=== PATIENT | male | born 1950 | race Caucasian/White ===

== ENCOUNTER 2016-12-20 04:47 | Emergency (ER) | payer OTHER ==
--- NOTE | 2016-12-20 05:13 | EDM.PDOC ---
ED HISTORY OF PRESENT ILLNESS - General Chief Complaint: Cardiovascular Problem Stated Complaint: CHEST PAIN Time Seen by Provider: 12/20/16 05:00 Source: Reports: Patient History Limitations: Reports: Other (Poor historian) - History of Present Illness INITIAL COMMENTS - FREE TEXT/NARRATIVE: 66 yo male with mild exertional chest pain for the past week was awakened tonight about 0230h by substernal CP not associated with SOB, nausea, or diaphoresis. Pain worse than earlier in the week. Is vague about his cardiac hx , poor historian. Is a [facility] patient. Took a baby aspirin before coming in tonight. Has had some diarrhea recently. An occasional dry cough without SOB. Symptom Onset Date: 12/13/16 Timing/Duration: Reports: Week(s):, Getting worse, Gradual onset Severity: moderate Location, General: Reports: chest Quality: Reports: Other ("not sharp") Improves with: Reports: None Worsens with: Reports: None Context, General: Reports: Other (Onset at rest. 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: Other (see below) (None) - Related Data Allergies/ADRs: Allergies Allergy/AdvReac Type Severity Reaction Status Date / Time No Known Allergies Allergy Verified 12/20/16 05:11 Home Meds: Home Meds Aspirin [Halfprin] 81 mg PO DAILY 12/20/16 [History] Carvedilol 25 mg PO BIDMEALS 12/20/16 [History] Lisinopril 40 mg PO DAILY 12/20/16 [History] Potassium Chloride 10 meq PO TID #14 cap.er 12/20/16 [Rx] amLODIPine Besylate [Amlodipine Besylate] 5 mg PO DAILY 12/20/16 [History] atorvaSTATin Calcium [Atorvastatin Calcium] 80 mg PO BEDTIME 12/20/16 [History] ED ROS GENERAL - Review of Systems Review Of Systems: See Below Constitutional: Reports: no symptoms HEENT: Reports: No symptoms Respiratory: Reports: No Symptoms Cardiovascular: Reports: Chest pain Endocrine: Reports: no symptoms GI/Abdominal: Reports: No symptoms : Reports: no symptoms Musculoskeletal: Reports: no symptoms Skin: Reports: no symptoms ED EXAM, GENERAL - Physical Exam Exam: See Below Exam Limited By: No limitations General Appearance: alert, WD/WN, no apparent distress, obese Eye Exam: bilateral eye: normal inspection Ears: normal external exam, normal canal, hearing grossly normal, normal TMs Ear Exam: bilateral ear: auricle normal, canal normal Nose: normal inspection, normal mucosa, no blood Throat/Mouth: Normal inspection, Normal lips, Normal teeth, Normal oropharynx, Normal voice, No airway compromise Head: atraumatic, normocephalic Neck: normal inspection Respiratory/Chest: no respiratory distress, lungs clear, normal breath sounds, no accessory muscle use Cardiovascular: regular rate, rhythm, no edema, other (No chest wall pain) GI/Abdominal: normal bowel sounds, soft, non tender, no distention Back Exam: normal inspection Extremities: normal inspection, normal range of motion, non-tender, no pedal edema Neurological: alert, oriented, CN II-XII intact, normal cognition Psychiatric: normal affect, normal mood Skin Exam: Warm, Dry, Intact, Normal color, No rash Lymphatic: no adenopathy EKG INTERPRETATION EKG Date: 12/20/16 Time: 05:00 Rhythm: NSR Rate (beats/min): 64 [place]: normal P-wave: present QRS: normal ST-T: normal QT: normal Comparison: NA - no prior EKG EKG Interpretation Comments: Poor R wave progression anterior leads. No acute changes. Course - Vital Signs Text/Narrative:: ASA 243 mg po CXR-neg KCL 40 meq po - Orders/Labs/Meds Orders: Active Orders 24 hr Category Date Time Status EKG Documentation Completion [RC] ASDIRECTED Care 12/20/16 04:51 Active Chest 2V [CR] Stat Exams 12/20/16 05:50 Taken UA W/MICROSCOPIC [URIN] Stat Lab 12/20/16 06:03 Uncollected Saline Lock Insert [OM.PC] Routine Oth 12/20/16 05:51 Ordered EKG 12 Lead [EK] Routine Ther 12/20/16 04:51 Ordered Labs: Laboratory Tests 12/20/16 12/20/16 12/20/16 Range/Units 05:23 05:23 05:23 WBC 14.5 H (4.5-12.0) X10-3/uL RBC 4.46 (4.30-5.75) x10(6)uL Hgb 11.8 (11.5-15.5) g/dL Hct 36.0 (30.0-51.3) % MCV 80.9 (80-96) fL MCH 26.4 L (27.7-33.6) pg MCHC 32.7 (32.2-35.4) g/dL RDW 13.1 (11.5-15.5) % Plt Count 461 H (125-369) X10(3)uL Sodium 135 (135-145) mmol/L Potassium 3.3 L (3.5-5.3) mmol/L Chloride 99 L (100-110) mmol/L Carbon Dioxide 27 (23-29) mmol/L BUN 29 H (8-23) mg/dL Creatinine 1.3 (0.6-1.3) mg/dL Est Cr Clr Drug Dosing 57.41 mL/min Estimated GFR (MDRD) 56 L (>60) BUN/Creatinine Ratio 22.3 H (9-20) Glucose 129 H (80-116) mg/dL Calcium 7.9 L (8.6-10.2) mg/dL Troponin I 0.01 L (0.02-0.06) NG/ML Meds: Medications Discontinued Medications Generic Name Dose Route Start Last Admin Trade Name Freq PRN Reason Stop Dose Admin Aspirin 243 mg 12/20/16 05:24 12/20/16 06:15 Aspirin PO 12/20/16 05:25 243 mg ONETIME ONE Administration Nitroglycerin 0.4 mg 12/20/16 05:18 Nitrostat SL 12/20/16 05:29 Q5M PRN Chest Pain Potassium Chloride 40 meq 12/20/16 06:02 12/20/16 06:15 Klor-Con 10 PO 12/20/16 06:03 40 meq ONETIME ONE Administration Sodium Chloride 10 ml 12/20/16 05:51 Saline Flush FLUSH ASDIRECTED PRN Keep Vein Open Departure - Departure Time of Disposition: 07:09 Disposition: Home, Self-Care 01 Condition: fair Clinical Impression: Hypokalemia, Atypical chest pain Diarrhea Qualifiers: Diarrhea type: unspecified type Qualified Code(s): R19.7 - Diarrhea, unspecified - My Orders Last 24 Hours: My Active Orders 12/20/16 04:51 EKG Documentation Completion [RC] ASDIRECTED EKG 12 Lead [EK] Routine 12/20/16 05:50 Chest 2V [CR] Stat 12/20/16 05:51 Saline Lock Insert [OM.PC] Routine 12/20/16 06:03 UA W/MICROSCOPIC [URIN] Stat - Assessment/Plan Last 24 Hours: My Active Orders 12/20/16 04:51 EKG Documentation Completion [RC] ASDIRECTED EKG 12 Lead [EK] Routine 12/20/16 05:50 Chest 2V [CR] Stat 12/20/16 05:51 Saline Lock Insert [OM.PC] Routine 12/20/16 06:03 UA W/MICROSCOPIC [URIN] Stat
[2016-12-20] MEDS ORDERED: Nitroglycerin 0.4 MG Tab.SL SL PRN (05:18)
[2016-12-20] MEDS ORDERED: Aspirin 81 MG Tab.Chew PO ONE (05:24)
[2016-12-20] MEDS ORDERED: Sodium Chloride 0.9% 10 ML Syringe FLUSH PRN (05:51)
[2016-12-20] MEDS ORDERED: Potassium Chloride 10 MEQ Tab.ER PO ONE (06:02)
[2016-12-20 08:47] VITALS: BP 140/72
--- NOTE | 2016-12-20 11:29 | CR ---
INDICATION: Chest pain. CHEST: PA and lateral views of the chest were obtained 12/20/2016. No comparisons were available. The aorta is somewhat tortuous with no definite calcifications. The heart is slightly enlarged in general. Bridging hyperostotic changes are noted in the mid thoracic spine and to a lesser extent in the lower thoracic spine. Overlying EKG leads are noted. An active infiltrate or effusion was not identified. IMPRESSION: 1. ASHD. 2. No acute process. 3. DJD spine. MTDD
== END 2016-12-20 07:25 | disposition home or self-care (01) ==
LOC: FB.ED 04:47
DX: R07.89 Other chest pain (principal); E87.6 Hypokalemia; R19.7 Diarrhea, unspecified; Z79.82 Long term (current) use of aspirin; Z79.899 Other long term (current) drug therapy
CPT/HCPCS: 36415; 71020; 80048; 81001; 84484; 85027; 93005; 99285; A9270

== ENCOUNTER 2019-05-11 12:06 | Emergency (ER) | payer MEDICARE, OTHER ==
--- NOTE | 2019-05-11 12:33 | EDM.PDOC ---
ED HPI GENERAL MEDICAL PROBLEM - General Stated Complaint: CHEST PAIN/BACK PAIN Time Seen by Provider: 05/11/19 12:26 Source of Information: Reports: Patient History Limitations: Reports: No Limitations - History of Present Illness INITIAL COMMENTS - FREE TEXT/NARRATIVE: 68-year-old male who reports that approximately 10 days ago he developed pain in his right and central chest that was a dull pain. He was working on a cabin in the [place] at this time and moving some logs around and it was quite mild at this point. It did not seem to be related to activity. It was just there and it did seem to come and go initially. It has progressively worsened with time. Over the past 5 days, he reports that it has been continually present. It has waxed and waned in intensity but has always been present to some degree. He would rate his discomfort as a 1/10 now (it is a 6-7/10 at its worst). It doesn' t radiate. There is no shortness of breath. He has had no diaphoresis. The pain does seem to be worse when he is lying down and when he gets up and walks around it seems to improve. He also reports that beginning about 8 days ago he developed pain in his left calf that seemed like a charley horse or a cramp and that has since resolved. No cough. No hemoptysis. There are no other associated signs or symptoms. There are no other modifying factors. The patient was initially seen in the walk-in clinic and an EKG was performed and it showed atrial fibrillation. The patient has no history of atrial fibrillation. That prompted the nurse practitioner to send the patient to the emergency department for further evaluation. Onset: Other (10 days ago) Duration: Getting Worse, Waxing/Waning Location: Reports: Chest Quality: Reports: Dull Severity: Mild Improves with: Reports: None Worsens with: Reports: Other (It is at its worst when lying down) Context: Reports: Other (As above) Associated Symptoms: Reports: No Other Symptoms Treatments AUDIOLOGY DOCTOR: Reports: Other (see below) WHOLE CHEST Pain Score (Numeric/FACES): 1 - Related Data Allergies Allergy/AdvReac Type Severity Reaction Status Date / Time No Known Allergies Allergy Verified 12/20/16 05:11 Home Meds: Home Meds Aspirin [Halfprin] 81 mg PO DAILY 12/20/16 [History] Carvedilol 25 mg PO BIDMEALS 12/20/16 [History] Lisinopril 40 mg PO DAILY 12/20/16 [History] Potassium Chloride 10 meq PO TID #14 cap.er 12/20/16 [Rx] amLODIPine Besylate [Amlodipine Besylate] 5 mg PO DAILY 12/20/16 [History] atorvaSTATin Calcium [Atorvastatin Calcium] 80 mg PO BEDTIME 12/20/16 [History] Past Medical History Cardiovascular History: Reports: High Cholesterol, Hypertension Neurological History: Reports: TIA - Past Surgical History Cardiovascular Surgical History: Reports: Carotid Endarterectomy (Left carotid endarterectomy) GI Surgical History: Reports: Appendectomy Musculoskeletal Surgical History: Reports: Arthroscopic Knee (Left knee) Social & Family History - Tobacco Use Smoking Status *Q: Never Smoker - Caffeine Use Caffeine Use: Reports: Soda - Alcohol Use Alcohol Use History: Yes Alcohol Use Frequency: Rarely - Living Situation & Occupation Occupation: Retired Social History Comment: 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 ED ROS GENERAL - Review of Systems Review Of Systems: See Below Constitutional: Reports: No Symptoms HEENT: Reports: No Symptoms Respiratory: Reports: No Symptoms Cardiovascular: Reports: Chest Pain (As described above) GI/Abdominal: Reports: No Symptoms : Reports: No Symptoms Musculoskeletal: Reports: Back Pain (Some pain in his central back as well.) Skin: Reports: No Symptoms Neurological: Reports: No Symptoms Hematologic/Lymphatic: Reports: No Symptoms Immunologic: Reports: No Symptoms ED EXAM, GENERAL - Physical Exam Exam: See Below Exam Limited By: No Limitations General Appearance: Alert, No Apparent Distress, Obese Eye Exam: Bilateral Eye: EOMI, Normal Inspection, PERRL Ears: Normal External Exam, Hearing Grossly Normal Ear Exam: Bilateral Ear: Auricle Normal Nose: Normal Inspection, Normal Mucosa, No Blood Throat/Mouth: Normal Oropharynx, Normal Voice, No Airway Compromise Head: Atraumatic, Normocephalic Neck: Normal Inspection, Supple, Non-Tender Respiratory/Chest: No Respiratory Distress, Lungs Clear, Normal Breath Sounds, No Accessory Muscle Use, Chest Non-Tender Cardiovascular: Normal Peripheral Pulses, No Edema, No Gallop, No JVD, No Murmur , Irregularly Irregular (But with a normal rate) Peripheral Pulses: 2+: Radial (L), Radial (R), Dorsalis Pedis (L), Dorsalis Pedis (R) GI/Abdominal: Normal Bowel Sounds, Soft, Non-Tender, No Mass Back Exam: Normal Inspection. No: CVA Tenderness (L), Decreased Range of Motion , Muscle Spasm, Paraspinal Tenderness, Vertebral Tenderness Extremities: Normal Inspection, Normal Range of Motion, Non-Tender, No Pedal Edema, Normal Capillary Refill, Other (No calf tenderness.). No: Kareen's Sign Neurological: Alert, Oriented, CN II-XII Intact, Normal Cognition, No Motor/ Sensory Deficits Psychiatric: Normal Affect Skin Exam: Warm, Dry, Intact, Normal Color, No Rash EKG INTERPRETATION EKG Date: 05/11/19 Time: 12:11 Rhythm: A-Fib Rate (Beats/Min): 84 [place]: LAD-Left Beulah Deviation P-Wave: Absent QRS: Normal (Poor R-wave progression) ST-T: Normal QT: Normal (But QTc is slightly prolonged.) Comparison: Change From Previous EKG (Compared to EKG performed on 12/20/2016 the A. fib is new. The EKG had the poor R-wave progression at that time as well. ) Course - Vital Signs Last Recorded V/S: Last Vital Signs Temp 36.6 C 05/11/19 12:06 Pulse 79 05/11/19 12:06 Resp 13 05/11/19 12:06 BP 135/81 05/11/19 12:06 Pulse Ox 98 05/11/19 12:06 - Orders/Labs/Meds Orders: Active Orders 24 hr Category Date Time Status EKG Documentation Completion [RC] ASDIRECTED Care 05/11/19 12:38 Active Ang Chest [CT] Stat Exams 05/11/19 13:05 Taken Sodium Chloride 0.9% [Normal Saline] 1,000 ml Med 05/11/19 12:59 Active IV ASDIRECTED Sodium Chloride 0.9% [Saline Flush] Med 05/11/19 12:37 Active 10 ml FLUSH ASDIRECTED PRN Peripheral IV Insertion Adult [OM.PC] Routine Oth 05/11/19 12:37 Ordered EKG 12 Lead [EK] Routine Ther 05/11/19 12:37 Ordered Medication Orders Sodium Chloride (Normal Saline) 1,000 mls @ 999 mls/hr IV ASDIRECTED RACHELLE Stop: 05/15/19 12:58 Last Admin: 05/11/19 13:01 Dose: 999 mls/hr Sodium Chloride (Saline Flush) 10 ml FLUSH ASDIRECTED PRN PRN Reason: Keep Vein Open Last Admin: 05/11/19 12:30 Dose: 10 ml Labs: Laboratory Tests 05/11/19 05/11/19 05/11/19 Range/Units 12:25 12:25 12:25 WBC 8.8 (4.5-12.0) X10-3/uL RBC 5.15 (4.30-5.75) x10(6)uL Hgb 14.1 (13.5-17.8) g/dL Hct 42.3 (30.0-51.3) % MCV 82.1 (80-96) fL MCH 27.3 L (27.7-33.6) pg MCHC 33.3 (32.2-35.4) g/dL RDW 12.8 (11.5-15.5) % Plt Count 452 H (125-369) X10(3)uL MPV 7.5 (7.4-10.4) fL Neut % (Auto) 78.6 (46-82) % Lymph % (Auto) 11.4 L (13-37) % [place] % (Auto) 5.4 (4-12) % Eos % (Auto) 2 (1.0-5.0) % Baso % (Auto) 2 (0-2) % Neut # (Auto) 6.9 (1.6-8.3) # Lymph # (Auto) 1.0 (0.6-5.0) # [place] # (Auto) 0.5 (0.0-1.3) # Eos # (Auto) 0.2 (0.0-0.8) # Baso # (Auto) 0.2 (0.0-0.2) # PT (8.7-11.1) INR (0.89-1.13) APTT (24.4-33.2) SECONDS Sodium 139 (135-145) mmol/L Potassium 3.8 (3.5-5.3) mmol/L Chloride 99 L (100-110) mmol/L Carbon Dioxide 28 (21-32) mmol/L BUN 17 (7-18) mg/dL Creatinine 1.1 (0.70-1.30) mg/dL Est Cr Clr Drug Dosing 63.91 mL/min Estimated GFR (MDRD) > 60 (>60) BUN/Creatinine Ratio 15.5 (9-20) Glucose 118 H (80-116) mg/dL Calcium 9.2 (8.6-10.2) mg/dL Magnesium 1.8 (1.8-2.5) mg/dL Total Bilirubin 1.4 H (0.1-1.3) mg/dL AST 19 (5-25) IU/L ALT 26 (12-36) U/L Alkaline Phosphatase 112 (56-112) IU/L Troponin I < 0.017 L (<0.017-0.056) ng/mL Total Protein 8.2 H (6.0-8.0) g/dL Albumin 3.2 (3.2-4.6) g/dL Globulin 5.0 g/dL Albumin/Globulin Ratio 0.6 TSH, Ultra Sensitive 3.37 (0.36-3.74) IU/mL 05/11/19 Range/Units 12:25 WBC (4.5-12.0) X10-3/uL RBC (4.30-5.75) x10(6)uL Hgb (13.5-17.8) g/dL Hct (30.0-51.3) % MCV (80-96) fL MCH (27.7-33.6) pg MCHC (32.2-35.4) g/dL RDW (11.5-15.5) % Plt Count (125-369) X10(3)uL MPV (7.4-10.4) fL Neut % (Auto) (46-82) % Lymph % (Auto) (13-37) % [place] % (Auto) (4-12) % Eos % (Auto) (1.0-5.0) % Baso % (Auto) (0-2) % Neut # (Auto) (1.6-8.3) # Lymph # (Auto) (0.6-5.0) # [place] # (Auto) (0.0-1.3) # Eos # (Auto) (0.0-0.8) # Baso # (Auto) (0.0-0.2) # PT 10.6 (8.7-11.1) INR 1.09 (0.89-1.13) APTT 26.5 (24.4-33.2) SECONDS Sodium (135-145) mmol/L Potassium (3.5-5.3) mmol/L Chloride (100-110) mmol/L Carbon Dioxide (21-32) mmol/L BUN (7-18) mg/dL Creatinine (0.70-1.30) mg/dL Est Cr Clr Drug Dosing mL/min Estimated GFR (MDRD) (>60) BUN/Creatinine Ratio (9-20) Glucose (80-116) mg/dL Calcium (8.6-10.2) mg/dL Magnesium (1.8-2.5) mg/dL Total Bilirubin (0.1-1.3) mg/dL AST (5-25) IU/L ALT (12-36) U/L Alkaline Phosphatase (56-112) IU/L Troponin I (<0.017-0.056) ng/mL Total Protein (6.0-8.0) g/dL Albumin (3.2-4.6) g/dL Globulin g/dL Albumin/Globulin Ratio TSH, Ultra Sensitive (0.36-3.74) IU/mL Meds: Medications Generic Name Dose Route Start Last Admin Trade Name Freq PRN Reason Stop Dose Admin Sodium Chloride 1,000 mls @ 999 mls/hr 05/11/19 12:59 05/11/19 13:01 Normal Saline IV 05/15/19 12:58 999 mls/hr ASDIRECTED RACHELLE Administration Sodium Chloride 10 ml 05/11/19 12:37 05/11/19 12:30 Saline Flush FLUSH 10 ml ASDIRECTED PRN Administration Keep Vein Open Discontinued Medications Generic Name Dose Route Start Last Admin Trade Name Freq PRN Reason Stop Dose Admin Aspirin 324 mg 05/11/19 12:38 05/11/19 12:38 Aspirin PO 05/11/19 12:39 324 mg ONETIME ONE Administration Iopamidol 100 ml 05/11/19 13:19 05/11/19 13:29 Isovue-370 (76%) IV 05/11/19 13:20 91 ml ONETIME ONE Administration - Radiology Interpretation Free Text/Narrative:: CT angiogram of the chest showed no evidence of pulmonary embolus. There was mild aneurysmal dilatation of the ascending aorta at 4.2 cm. There were 2 right- sided pulmonary nodules, one at 3 mm and one at 5 mm. There was a mildly enlarged niall hepatis lymph node at 1.7 cm. This was all per the radiologist. - Re-Assessments/Exams Free Text/Narrative Re-Assessment/Exam: 05/11/19 14:21: Patient is essentially symptom free. His blood pressure is 160/ 99 but he did not take his blood pressure medications today. He has been vitally stable while in the emergency department. His blood tests were reassuringly normal. His troponin was negative and with continual pain for the past 5 days, I feel this rules out AR. The CT angiogram of his chest showed no evidence of pulmonary emboli. His EKG shows atrial fibrillation but with a normal rate. He is to follow-up with his jewel gauger at the [facility] in [place] Monday of this coming week. We will give him copies of his EKG, paperwork and a CD copy of his CT scan to take with him when he sees the jewel gauger. I am unsure why he is having the chest pain but it does not appear to be related to a cardiac or pulmonary process. In regards to his new onset atrial fibrillation , I will let his jewel gauger determine the need for any further therapies. He is stable for discharge at this point. He was told to take his blood pressure medication when he gets home. Departure - Departure Time of Disposition: 14:25 Disposition: Home, Self-Care 01 Condition: Good (Stable) Clinical Impression: Ruled out for myocardial infarction, New onset atrial fibrillation Chest pain Qualifiers: Chest pain type: unspecified Qualified Code(s): R07.9 - Chest pain, unspecified Referrals: Lorelei Cortez MD [Primary Care Provider] - Additional Instructions: Your blood tests were reassuringly normal. Your EKG showed atrial fibrillation. As we discussed, this is an abnormal rhythm of your heart and need follow-up through your jewel gauger. The CAT scan of your chest showed no evidence of blood clots in your lungs. 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 You also have 2 nodules in your right upper lung that need to be followed by your doctor at the [facility]. You will also have a mildly enlarged lymph node around the base of your liver that needs to be followed by your doctor as well. I am unsure why you are having the chest pain but it is not related to a heart attack or to a blood clot in your lung. You should avoid strenuous activity until followed up by your jewel gauger. Keep your cardiology appointment on 05/14/2019 as scheduled. Continue to take your medications as prescribed by your doctor. Back to the emergency department for trouble breathing, worsening pain, fast heart rate, weakness or dizziness or any other concerning sign or symptom. - My Orders Last 24 Hours: My Active Orders 05/11/19 12:37 Sodium Chloride 0.9% [Saline Flush] 10 ml FLUSH ASDIRECTED PRN Peripheral IV Insertion Adult [OM.PC] Routine EKG 12 Lead [EK] Routine 05/11/19 12:38 EKG Documentation Completion [RC] ASDIRECTED 05/11/19 12:59 Sodium Chloride 0.9% [Normal Saline] 1,000 ml IV ASDIRECTED 05/11/19 13:05 Ang Chest [CT] Stat - Assessment/Plan Last 24 Hours: My Active Orders 05/11/19 12:37 Sodium Chloride 0.9% [Saline Flush] 10 ml FLUSH ASDIRECTED PRN Peripheral IV Insertion Adult [OM.PC] Routine EKG 12 Lead [EK] Routine 05/11/19 12:38 EKG Documentation Completion [RC] ASDIRECTED 05/11/19 12:59 Sodium Chloride 0.9% [Normal Saline] 1,000 ml IV ASDIRECTED 05/11/19 13:05 Ang Chest [CT] Stat
[2019-05-11] MEDS ORDERED: Sodium Chloride 0.9% 10 ML Syringe FLUSH PRN (12:37)
[2019-05-11] MEDS ORDERED: Aspirin 81 MG Tab.Chew PO ONE (12:38)
[2019-05-11 12:43] VITALS: PULSE 79
[2019-05-11] MEDS ORDERED: Sodium Chloride 0.9% 1,000 ML IV SCH (12:59)
[2019-05-11] MEDS ORDERED: Iopamidol 755 Mg/ML 100 ML Bottle IV ONE (13:19)
[2019-05-11 14:54] VITALS: BP 151/94
== END 2019-05-11 14:50 | disposition home or self-care (01) ==
LOC: FB.ED 12:06
DX: I48.91 Unspecified atrial fibrillation (principal); E78.00 Pure hypercholesterolemia, unspecified; I10 Essential (primary) hypertension; Z90.49 Acquired absence of other specified parts of digestive tract; Z79.82 Long term (current) use of aspirin; Z98.890 Other specified postprocedural states; Z79.899 Other long term (current) drug therapy
CPT/HCPCS: 71275; 80053; 83735; 84443; 84484; 85025; 85610; 85730; 93005; 96360; 99285; A9270; J7030; Q9967; 93010; 99284

== ENCOUNTER 2019-07-06 20:48 | Emergency (ER) | payer OTHER ==
[2019-07-06] MEDS ORDERED: Ketorolac 30 MG/ML SDV IVPUSH ONE (22:00)
[2019-07-06] MEDS ORDERED: Sodium Chloride 0.9% 1,000 ML IV SCH (22:00)
--- NOTE | 2019-07-06 22:01 | EDM.PDOC ---
ED HPI GENERAL MEDICAL PROBLEM - General Stated Complaint: chest pain Time Seen by Provider: 07/06/19 21:57 Source of Information: Reports: Patient, EMS Notes Reviewed, Old Records History Limitations: Reports: No Limitations - History of Present Illness INITIAL COMMENTS - FREE TEXT/NARRATIVE: Tadeo is a 68-year-old male presents to ER with abdominal pain. He still complained of some pain in the chest but that resolved by the time he came in. The abdominal pain generalized associated one large episode of diarrhea. He denies shortness of breath fever chills. He was seen a few weeks ago, with similar symptoms of atypical chest pain, found to have A. fib that was new. He was instructed to cease PCP at the [facility] I am not privy to those notes for that visit. I did see the patient earlier this week with UTI symptoms and BPH. These have not improved. He has a history of hypertension, obesity that well-controlled. Abdomen Pain Score (Numeric/FACES): 7 - Related Data Allergies Allergy/AdvReac Type Severity Reaction Status Date / Time No Known Allergies Allergy Verified 12/20/16 05:11 Home Meds: Home Meds Aspirin [Halfprin] 81 mg PO DAILY 12/20/16 [History] Carvedilol 25 mg PO BIDMEALS 12/20/16 [History] Lisinopril 40 mg PO DAILY 12/20/16 [History] amLODIPine Besylate [Amlodipine Besylate] 5 mg PO DAILY 12/20/16 [History] atorvaSTATin Calcium [Atorvastatin Calcium] 40 mg PO BEDTIME 12/20/16 [History] Gabapentin [Neurontin] 300 mg PO BEDTIME 07/06/19 [History] Nitrofurantoin Monohyd/M-Cryst [Macrobid 100 mg Capsule] 100 mg PO BID 07/06/19 [History] Tamsulosin HCl 0.4 mg PO DAILY 07/06/19 [History] Past Medical History Cardiovascular History: Reports: High Cholesterol, Hypertension Neurological History: Reports: TIA Other Endocrine/Metabolic History: pre-DM - Past Surgical History Cardiovascular Surgical History: Reports: Carotid Endarterectomy (Left carotid endarterectomy) GI Surgical History: Reports: Appendectomy Musculoskeletal Surgical History: Reports: Arthroscopic Knee (Left knee) Social & Family History - Family History Family Medical History: Unobtainable - Caffeine Use Caffeine Use: Reports: Soda - Living Situation & Occupation Occupation: Retired ED ROS GENERAL - Review of Systems Review Of Systems: ROS reveals no pertinent complaints other than HPI. ED EXAM, GI/ABD - Physical Exam Exam: See Below Exam Limited By: No Limitations General Appearance: Alert, WD/WN, No Apparent Distress Eyes: Bilateral: Normal Appearance, EOMI Ears: Normal External Exam, Normal Canal, Hearing Grossly Normal, Normal TMs Respiratory/Chest: No Respiratory Distress, Lungs Clear Cardiovascular: Normal Peripheral Pulses, No JVD GI/Abdominal Exam: Normal Bowel Sounds, Soft, Tender. No: Guarding, Rigid, Mass Course - Vital Signs Last Recorded V/S: Last Vital Signs Temp 98.0 F 07/06/19 22:46 Pulse 74 07/06/19 22:46 Resp 15 07/06/19 22:46 BP 167/91 H 07/06/19 22:46 Pulse Ox 96 07/06/19 22:46 - Orders/Labs/Meds Orders: Active Orders 24 hr Category Date Time Status EKG Documentation Completion [RC] ASDIRECTED Care 07/06/19 20:52 Active Chest 2V [CR] Stat Exams 07/06/19 20:52 Taken EKG 12 Lead [EK] Routine Ther 07/06/19 20:52 Ordered Labs: Laboratory Tests 07/06/19 07/06/19 07/06/19 Range/Units 21:15 21:15 21:15 WBC 8.3 (4.5-12.0) X10-3/uL RBC 4.70 (4.30-5.75) x10(6)uL Hgb 12.7 L (13.5-17.8) g/dL Hct 38.6 (30.0-51.3) % MCV 82.1 (80-96) fL MCH 27.1 L (27.7-33.6) pg MCHC 33.0 (32.2-35.4) g/dL RDW 14.1 (11.5-15.5) % Plt Count 439 H (125-369) X10(3)uL MPV 7.5 (7.4-10.4) fL Neut % (Auto) 69.6 (46-82) % Lymph % (Auto) 17.3 (13-37) % Jenkins % (Auto) 7.7 (4-12) % Eos % (Auto) 4 (1.0-5.0) % Baso % (Auto) 2 (0-2) % Neut # (Auto) 5.9 (1.6-8.3) # Lymph # (Auto) 1.4 (0.6-5.0) # Jenkins # (Auto) 0.6 (0.0-1.3) # Eos # (Auto) 0.3 (0.0-0.8) # Baso # (Auto) 0.1 (0.0-0.2) # Sodium 138 (135-145) mmol/L Potassium 3.3 L (3.5-5.3) mmol/L Chloride 102 (100-110) mmol/L Carbon Dioxide 26 (21-32) mmol/L BUN 12 (7-18) mg/dL Creatinine 0.8 (0.70-1.30) mg/dL Est Cr Clr Drug Dosing TNP Estimated GFR (MDRD) > 60 (>60) BUN/Creatinine Ratio 15.0 (9-20) Glucose 114 (80-116) mg/dL Calcium 8.6 (8.6-10.2) mg/dL Total Bilirubin 1.8 H (0.1-1.3) mg/dL AST 92 H D (5-25) IU/L ALT 61 H D (12-36) U/L Alkaline Phosphatase 239 H (56-112) IU/L Troponin I < 0.017 L (<0.017-0.056) ng/mL Total Protein 7.6 (6.0-8.0) g/dL Albumin 3.1 L (3.2-4.6) g/dL Globulin 4.5 g/dL Albumin/Globulin Ratio 0.7 Amylase 29 (25-115) U/L Meds: Medications Discontinued Medications Generic Name Dose Route Start Last Admin Trade Name Freq PRN Reason Stop Dose Admin Sodium Chloride 1,000 mls @ 999 mls/hr 07/06/19 22:00 07/06/19 22:12 Normal Saline IV 999 mls/hr ASDIRECTED RACHELLE Administration Ketorolac Tromethamine 15 mg 07/06/19 22:00 07/06/19 22:18 Toradol IVPUSH 07/06/19 22:01 15 mg ONETIME ONE Administration Departure - Departure Time of Disposition: 13:05 Disposition: Home, Self-Care 01 Condition: Good Clinical Impression: Hypokalemia, Atypical chest pain Diarrhea Qualifiers: Diarrhea type: unspecified type Qualified Code(s): R19.7 - Diarrhea, unspecified - Discharge Information Instructions: Diarrhea, Adult Referrals: Heladio Estrella MD [Emergency Provider] - 2 Days PCP,Kacey [Primary Care Provider] - 2 Days Forms: ED Department Discharge Additional Instructions: follow up with your primary care on Monday. if your symptoms getting worst, you may come back to ED - Problem List & Annotations (1) Diarrhea SNOMED Code(s): 39627077 Code(s): R19.7 - DIARRHEA, UNSPECIFIED Status: Acute Qualifiers: Diarrhea type: unspecified type Qualified Code(s): R19.7 - Diarrhea, unspecified (2) HTN (hypertension) SNOMED Code(s): 08408635 Code(s): I10 - ESSENTIAL (PRIMARY) HYPERTENSION Status: Acute Qualifiers: Hypertension type: essential hypertension Qualified Code(s): I10 - Essential (primary) hypertension (3) Afib SNOMED Code(s): 31128743 Code(s): I48.91 - UNSPECIFIED ATRIAL FIBRILLATION Status: Acute Qualifiers: Atrial fibrillation type: unspecified chronic Qualified Code(s): I48.20 - Chronic atrial fibrillation, unspecified; I48.2 - Chronic atrial fibrillation (4) Hypokalemia SNOMED Code(s): 10684806 Code(s): E87.6 - HYPOKALEMIA Status: Acute (5) Atypical chest pain SNOMED Code(s): 886435943 Code(s): R07.89 - OTHER CHEST PAIN Status: Acute - Problem List Review Problem List Initiated/Reviewed/Updated: Yes - My Orders Last 24 Hours: My Active Orders 07/06/19 20:52 EKG Documentation Completion [RC] ASDIRECTED Chest 2V [CR] Stat EKG 12 Lead [EK] Routine - Assessment/Plan Last 24 Hours: My Active Orders 07/06/19 20:52 EKG Documentation Completion [RC] ASDIRECTED Chest 2V [CR] Stat EKG 12 Lead [EK] Routine Plan: Patient's pain was stable in the ER, even improved. Given 1 L of normal saline, some Toradol, improved. We'll discharge him home and follow-up with the physician on Monday.
[2019-07-06 23:46] VITALS: BP 167/91; PULSE 74
--- NOTE | 2019-07-08 10:55 | CR ---
INDICATION: Chest pain. CHEST: PA and lateral views of the chest, 07/06/19, were compared with . The heart is enlarged. The aorta is tortuous with minimal calcification in the arch and descending portion. Bridging hyperostotic changes are noted anterolaterally in the mid to lower thoracic spine. Overlying EKG leads are noted. A definite active infiltrate or effusion was not identified. No definite evidence of CHF is seen. IMPRESSION: 1. No definite acute process. 2. ASHD. 3. DJD spine. MTDD
== END 2019-07-06 23:15 | disposition home or self-care (01) ==
LOC: FB.ED 20:48
DX: I48.91 Unspecified atrial fibrillation (principal); E87.6 Hypokalemia; I10 Essential (primary) hypertension; E78.5 Hyperlipidemia, unspecified; R19.7 Diarrhea, unspecified; Z86.73 Personal history of transient ischemic attack (TIA), and cerebral infarction without residual deficits; Z79.899 Other long term (current) drug therapy; Z79.82 Long term (current) use of aspirin
CPT/HCPCS: 36415; 71046; 80053; 82150; 84484; 85025; 93005; 96361; 96374; 99284; J1885; J7030